=== PATIENT | female | born 1980 | race Caucasian/White ===

== ENCOUNTER 2016-12-23 18:35 | Emergency (ER) | payer OTHER ==
[~2016-12-23] VITALS: Ht 152.4 cm; Wt 49.9 kg
[~2016-12-23 18:35] MED LIST: 'PARAFON FORTE500 M1 PO; CEPHALEXIN500 M1 PO; COMBIVENT1 ARO IH; Motrin,Rufen800 MG PO; NAPROSYN500 MG PO; NKHM; Orphenadrine C100 MG PO; PHENERGAN W/DM120 ML PO; PREDNICOT10 MG PO; PROAIR HFA0.09 MG/AC INH; TESSALON PERLE100 M1 PO; ZANTAC 150150 MG PO; ZITHROMAX Z PA250 MG PO; ZITHROMAX250 MG PO; ZOFRAN ODT4 MG SL
[2016-12-23 19:22] VITALS: BP 118/79
[2016-12-23] MEDS ORDERED: ANUSOL-HC25 MG R (19:48)
[2016-12-23] MEDS ORDERED: COLACE100 MG PO (19:48)
[2016-12-23] MEDS ORDERED: ANUSOL-HC2.5% R (19:49)
== END 2016-12-23 19:53 | disposition home or self-care (01) ==
LOC: ED 18:35
DX: K64.4 Residual hemorrhoidal skin tags (principal); F17.200 Nicotine dependence, unspecified, uncomplicated; Z98.890 Other specified postprocedural states; Z88.5 Allergy status to narcotic agent

== ENCOUNTER 2017-10-12 09:13 | Emergency (ER) | payer OTHER ==
[~2017-10-12] VITALS: Ht 152.4 cm; Wt 52.2 kg
[~2017-10-12 09:13] MED LIST changes: +ANUSOL-HC2.5% R; +ANUSOL-HC25 MG R; +COLACE100 MG PO
[2017-10-12] MEDS ORDERED: IBUPROFEN600 MG PO (10:09)
[2017-10-12 10:19] VITALS: BP 106/71
== END 2017-10-12 10:23 | disposition home or self-care (01) ==
LOC: ED 09:13
DX: J02.9 Acute pharyngitis, unspecified (principal); Z88.6 Allergy status to analgesic agent

== ENCOUNTER 2018-02-28 17:19 | Emergency (ER) | payer OTHER ==
[~2018-02-28] VITALS: Ht 152.4 cm; Wt 51.7 kg
[~2018-02-28 17:19] MED LIST changes: +IBUPROFEN600 MG PO
[2018-02-28 17:29] VITALS: BP 125/75
[2018-02-28] MEDS ORDERED: NAPROSYN500 MG PO (18:16)
== END 2018-02-28 18:44 | disposition home or self-care (01) ==
LOC: ED 17:19
DX: G56.01 Carpal tunnel syndrome, right upper limb (principal); Z98.890 Other specified postprocedural states; Z88.5 Allergy status to narcotic agent

== ENCOUNTER 2018-07-15 17:08 | Emergency (ER) | payer OTHER ==
[~2018-07-15] VITALS: Ht 152.4 cm; Wt 52.2 kg
[2018-07-15 17:12] VITALS: BP 110/73
== END 2018-07-15 18:38 | disposition home or self-care (01) ==
LOC: ED 17:08
DX: B07.9 Viral wart, unspecified (principal); Z88.8 Allergy status to other drugs, medicaments and biological substances; Z79.899 Other long term (current) drug therapy

== ENCOUNTER 2019-01-04 11:18 | Emergency (ER) | payer OTHER, BC ==
[~2019-01-04] VITALS: Ht 152.4 cm; Wt 51.7 kg
[2019-01-04 11:19] VITALS: BP 117/73
[2019-01-04] MEDS ORDERED: ZYRTEC10 MG PO (11:35)
== END 2019-01-04 11:48 | disposition home or self-care (01) ==
LOC: ED 11:18
DX: H57.89 Other specified disorders of eye and adnexa (principal); F17.200 Nicotine dependence, unspecified, uncomplicated; Z88.5 Allergy status to narcotic agent

== ENCOUNTER 2019-01-26 09:48 | Emergency (ER) | payer OTHER, BC ==
[~2019-01-26] VITALS: Ht 152.4 cm; Wt 51.3 kg
[~2019-01-26 09:48] MED LIST changes: +ZYRTEC10 MG PO
[2019-01-26 09:49] VITALS: BP 115/55
[2019-01-26 10:59] LABS: BASO # 0.1 10*3/uL (0.0-0.1); EOS # 0.1 10*3/uL (0.0-0.4); EOS % 0.7 % (1.0-4.0); HEMATOCRIT 40.6 % (37.0-47.0); HEMOGLOBIN 12.5 g/dl (12.0-16.0); LYMPH % 19.6 % (27.0-41.0); MEAN CELL VOLUME 86.8 fl (81.0-99.0); MEAN CORPUSCULAR HGB 26.7 pg (27.0-31.0); MEAN CORPUSCULAR HGB CONC 30.8 g/dl (33.0-37.0); MONO # 1.1 10*3/uL (0.1-1.0); MONO % 11.2 % (3.0-9.0); NEUT # 6.7 10*3/uL (2.3-7.9); PLATELET COUNT AUTOMATED 229 10*3/uL (130-400); RED BLOOD COUNT 4.68 10*6/uL (4.10-5.10); RED CELL DISTRI WIDTH 15.8 % (0-14.5)
[2019-01-26 11:09] LABS: BILIRUBIN NEGATIVE (NEGATIVE); BLOOD NEGATIVE (NEGATIVE); CLARITY SL CLOUDY (CLEAR); COLOR YELLOW (YELLOW); GLUCOSE NEGATIVE (NEGATIVE); KETONE NEGATIVE (NEGATIVE); LEUKO ESTERASE NEGATIVE (NEGATIVE); NITRITE NEGATIVE (NEGATIVE); SPECIFIC GRAVITY 1.015 (1.005-1.030); UROBILINOGEN 0.2 E.U./dl (0.2-1.0)
[2019-01-26 11:39] LABS: BACTERIA TRACE; EPITHELIAL CELLS 15-20; MUCOUS TRACE
[2019-01-26 12:06] LABS: ALBUMIN 3.6 gm/dl (3.1-4.5); ALKALINE PHOSPHATASE 73 U/L (45-117); BUN 12 mg/dl (7-24); CHLORIDE 108 mmol/L (98-107); CREATININE 0.89 mg/dL (0.55-1.02); LIPASE 122 U/L (73-393); POTASSIUM 4.4 mmol/L (3.5-5.1); SGOT/AST 13 IU/L (3-35); SGPT/ALT 16 U/L (12-78); SODIUM 139 mmol/L (136-145); TOTAL PROTEIN 7.3 gm/dL (6.4-8.2)
[2019-01-26] MEDS ORDERED: IBUPROFEN600 MG PO (14:31)
== END 2019-01-26 14:47 | disposition home or self-care (01) ==
LOC: ED 09:48
PROVIDERS: Physician Assistant
DX: N94.89 Other specified conditions associated with female genital organs and menstrual cycle (principal); R19.7 Diarrhea, unspecified; J02.9 Acute pharyngitis, unspecified; M54.5 Low back pain; R35.0 Frequency of micturition; R39.15 Urgency of urination; Z88.8 Allergy status to other drugs, medicaments and biological substances

== ENCOUNTER 2019-11-02 13:32 | Emergency (ER) | payer OTHER ==
[~2019-11-02] VITALS: Ht 152.4 cm; Wt 53.5 kg
[2019-11-02 13:44] VITALS: BP 130/71
[2019-11-02] MEDS ORDERED: CYCLOBENZAPRINE10 MG PO (15:07)
[2019-11-02] MEDS ORDERED: PREDNISONE50 MG PO (15:07)
== END 2019-11-02 14:20 | disposition home or self-care (01) ==
LOC: ED 13:32
DX: S46.912A Strain of unspecified muscle, fascia and tendon at shoulder and upper arm level, left arm, initial encounter (principal); Z88.5 Allergy status to narcotic agent; Z79.899 Other long term (current) drug therapy; X58.XXXA Exposure to other specified factors, initial encounter; Y93.89 Activity, other specified; Y92.89 Other specified places as the place of occurrence of the external cause; Y99.8 Other external cause status

== ENCOUNTER 2019-12-03 13:38 | Emergency (ER) | payer OTHER ==
[~2019-12-03] VITALS: Ht 152.4 cm; Wt 53.1 kg
[~2019-12-03 13:38] MED LIST changes: +CYCLOBENZAPRINE10 MG PO; +PREDNISONE50 MG PO
[2019-12-03 13:46] VITALS: BP 116/68
[2019-12-03] MEDS ORDERED: Motrin,Rufen800 MG PO (15:49)
== END 2019-12-03 15:57 | disposition home or self-care (01) ==
LOC: ED 13:38
DX: S66.911A Strain of unspecified muscle, fascia and tendon at wrist and hand level, right hand, initial encounter (principal); Z88.8 Allergy status to other drugs, medicaments and biological substances; Z79.899 Other long term (current) drug therapy; W20.8XXA Other cause of strike by thrown, projected or falling object, initial encounter; Y93.89 Activity, other specified; Y92.89 Other specified places as the place of occurrence of the external cause; Y99.8 Other external cause status

== ENCOUNTER 2020-01-07 18:20 | Emergency (ER) | payer OTHER ==
[~2020-01-07] VITALS: Ht 152.4 cm; Wt 52.2 kg
[2020-01-07 18:25] VITALS: BP 121/70
[2020-01-07] MEDS ORDERED: ROBAXIN-750750 MG PO (19:59)
== END 2020-01-07 20:18 | disposition home or self-care (01) ==
LOC: ED 18:20
DX: S16.1XXA Strain of muscle, fascia and tendon at neck level, initial encounter (principal); K21.9 Gastro-esophageal reflux disease without esophagitis; F41.9 Anxiety disorder, unspecified; F17.200 Nicotine dependence, unspecified, uncomplicated; Z88.8 Allergy status to other drugs, medicaments and biological substances; Z79.899 Other long term (current) drug therapy; X58.XXXA Exposure to other specified factors, initial encounter; Y93.89 Activity, other specified; Y92.89 Other specified places as the place of occurrence of the external cause; Y99.8 Other external cause status

== ENCOUNTER 2020-02-07 19:47 | Emergency (ER) | payer OTHER ==
[~2020-02-07 19:47] MED LIST changes: +ROBAXIN-750750 MG PO
[2020-02-07 20:03] VITALS: BP 140/82
== END 2020-02-07 21:35 | disposition home or self-care (01) ==
LOC: ED 19:47
DX: S05.02XA Injury of conjunctiva and corneal abrasion without foreign body, left eye, initial encounter (principal); Z88.8 Allergy status to other drugs, medicaments and biological substances; W22.8XXA Striking against or struck by other objects, initial encounter; Y93.89 Activity, other specified; Y92.89 Other specified places as the place of occurrence of the external cause; Y99.8 Other external cause status

== ENCOUNTER 2020-02-21 10:53 | Emergency (ER) | payer OTHER ==
[~2020-02-21] VITALS: Ht 152.4 cm; Wt 52.2 kg
[2020-02-21 10:57] VITALS: BP 118/70
[2020-02-21] MEDS ORDERED: Motrin,Rufen800 MG PO (12:25)
== END 2020-02-21 12:26 | disposition home or self-care (01) ==
LOC: ED 10:53
DX: M77.8 Other enthesopathies, not elsewhere classified (principal); K21.9 Gastro-esophageal reflux disease without esophagitis; F41.9 Anxiety disorder, unspecified; F17.200 Nicotine dependence, unspecified, uncomplicated; Z88.8 Allergy status to other drugs, medicaments and biological substances; Z79.899 Other long term (current) drug therapy

== ENCOUNTER 2020-08-26 17:57 | Emergency (ER) | payer SELFPAY ==
[~2020-08-26] VITALS: Ht 152.4 cm; Wt 55.3 kg
[2020-08-26 18:45] VITALS: BP 113/96
[2020-08-26 19:36] LABS: FREE T4 1.03 ng/dl (0.76-1.46)
[2020-08-26 19:41] LABS: THYROID STIM HORMONE (HS) 1.81 uIU/ml (0.358-4.75)
== END 2020-08-26 20:33 | disposition home or self-care (01) ==
LOC: ED 17:57
PROVIDERS: Internal Medicine
DX: M54.2 Cervicalgia (principal); G89.29 Other chronic pain; J02.9 Acute pharyngitis, unspecified; Z88.8 Allergy status to other drugs, medicaments and biological substances

== ENCOUNTER 2022-10-16 18:01 | Emergency (ER) | payer OTHER ==
[~2022-10-16] VITALS: Ht 152.4 cm; Wt 63.5 kg
[2022-10-16 18:13] VITALS: BP 125/77
[2022-10-16] MEDS ORDERED: CEPHALEXIN500 M1 PO (19:00)
== END 2022-10-16 19:21 | disposition home or self-care (01) ==
LOC: ED 18:01
DX: S67.191A Crushing injury of left index finger, initial encounter (principal); K21.9 Gastro-esophageal reflux disease without esophagitis; F41.9 Anxiety disorder, unspecified; Z88.8 Allergy status to other drugs, medicaments and biological substances; Z98.890 Other specified postprocedural states; W27.8XXA Contact with other nonpowered hand tool, initial encounter; Y93.89 Activity, other specified; Y92.002 Bathroom of unspecified non-institutional (private) residence as the place of occurrence of the external cause; Y99.0 Civilian activity done for income or pay

== ENCOUNTER 2023-10-27 10:51 | Emergency (ER) | payer SELFPAY ==
[~2023-10-27] VITALS: Ht 152.4 cm; Wt 59.0 kg
[2023-10-27] MEDS ORDERED: NAPROXEN 250 MG TAB PO ONE (11:20)
[2023-10-27 11:29] VITALS: BP 125/72
[2023-10-27] MEDS ORDERED: CYCLOBENZAPRINE5 M3 PO (13:12)
[2023-10-27] MEDS ORDERED: PREDNISONE10 M1 PO (13:12)
== END 2023-10-27 13:38 | disposition home or self-care (01) ==
LOC: ED 10:51
DX: M47.816 Spondylosis without myelopathy or radiculopathy, lumbar region (principal); K21.9 Gastro-esophageal reflux disease without esophagitis; F41.9 Anxiety disorder, unspecified; Z88.8 Allergy status to other drugs, medicaments and biological substances; Z98.890 Other specified postprocedural states

== ENCOUNTER 2024-12-21 19:18 | Emergency (ER) | payer OTHER ==
[~2024-12-21] VITALS: Ht 152.4 cm; Wt 65.8 kg
[~2024-12-21 19:18] MED LIST changes: +CYCLOBENZAPRINE5 M3 PO; +MEDROL DOSEPAK4 MG PO; +PREDNISONE10 M1 PO
[2024-12-21] MEDS ORDERED: IOHEXOL 350 MG/ML 100 ML VIAL IV ONE (19:45)
[2024-12-21] MEDS ORDERED: SODIUM CHLORIDE 0.9% 100 ML BAG IV ONE (19:45)
[2024-12-21 20:36] LABS: ALKALINE PHOSPHATASE 72 U/L (46-116); BUN 13 mg/dl (9-23); CHLORIDE 107 mmol/L (98-107); CPK 90 U/L (34-171); POTASSIUM 3.6 mmol/L (3.4-5.1); SGPT/ALT 13 U/L (5-49); TOTAL PROTEIN 7.5 gm/dL (6.0-8.0)
[2024-12-21] MEDS ORDERED: METHOCARBAMOL750 M1 PO (22:22)
[2024-12-21 22:48] VITALS: BP 133/75
== END 2024-12-21 22:49 | disposition home or self-care (01) ==
LOC: ED 19:18
PROVIDERS: Emergency Medicine
DX: M94.0 Chondrocostal junction syndrome [Tietze] (principal); R91.1 Solitary pulmonary nodule; F17.200 Nicotine dependence, unspecified, uncomplicated; K21.9 Gastro-esophageal reflux disease without esophagitis; Z79.899 Other long term (current) drug therapy; Z88.8 Allergy status to other drugs, medicaments and biological substances